=== PATIENT | male | born 1985 | race American Indian/Alaskan Native ===

== ENCOUNTER 2022-06-14 11:30 | Emergency (ER) | payer OTHER ==
[2022-06-14] MEDS ORDERED: Citric Acid/Simethicone/Sodium Bicarbonate Granules 4 GM Packet PO ONE (12:03)
== END 2022-06-14 12:45 | disposition home or self-care (01) ==
LOC: DL.ED 11:30
DX: K92.9 Disease of digestive system, unspecified (principal)
CPT/HCPCS: 99284

== ENCOUNTER 2023-08-08 05:57 | Day surgery (SDC) | payer MEDICAID ==
[2023-08-08] MEDS ORDERED: Dextrose 5%-0.45% NaCl 1,000 ML IV SCH (06:00)
[2023-08-08] MEDS ORDERED: fentaNYL 100 MCG/2 ML SDV ONE (06:20)
[2023-08-08] MEDS ORDERED: Midazolam 1 MG/ML 2 ML SDV ONE (06:20)
[2023-08-08] MEDS ORDERED: fentaNYL 100 MCG/2 ML SDV IV ONE ×2 (06:52→06:53)
[2023-08-08] MEDS ORDERED: Midazolam 1 MG/ML 2 ML SDV IV ONE ×2 (06:53→06:54)
== END 2023-08-08 08:46 | disposition home or self-care (01) ==
LOC: DL.ENDO 05:57
PROVIDERS: ATTEND Internal Medicine Gastroenterology
DX: R13.10 Dysphagia, unspecified (principal); K22.2 Esophageal obstruction; R63.4 Abnormal weight loss; K21.9 Gastro-esophageal reflux disease without esophagitis; Z53.09 Procedure and treatment not carried out because of other contraindication
CPT/HCPCS: J2250; J3010; J7042

== ENCOUNTER 2023-08-21 07:31 | Day surgery (SDC) | payer MEDICAID ==
[~2023-08-21 07:31] MED LIST: Dextrose 5%-0.45% NaCl 1,000 ML IV SCH
[2023-08-21] MEDS ORDERED: Propofol 200 MG/20 ML SDV ONE (07:59)
== END 2023-08-21 10:10 | disposition home or self-care (01) ==
LOC: DL.ENDO 07:31
PROVIDERS: ATTEND Internal Medicine Gastroenterology
DX: K29.50 Unspecified chronic gastritis without bleeding (principal); B96.81 Helicobacter pylori [H. pylori] as the cause of diseases classified elsewhere; R13.10 Dysphagia, unspecified
CPT/HCPCS: 00731; 87077; J7042

== ENCOUNTER 2023-08-26 18:09 | Emergency (ER) | payer MEDICAID ==
[2023-08-26] MEDS ORDERED: Iopamidol 612 MG/ML 100 ML Bottle IVPUSH ONE (18:43)
[2023-08-26] MEDS ORDERED: Sodium Chloride 0.9% 10 ML Syringe FLUSH PRN (18:43)
[2023-08-26] MEDS ORDERED: Citric Acid/Simethicone/Sodium Bicarbonate Granules 4 GM Packet PO ONE (19:51)
== END 2023-08-26 20:28 | disposition home or self-care (01) ==
LOC: DL.ED 18:09
DX: R13.10 Dysphagia, unspecified (principal)
CPT/HCPCS: 70491; 99282; 99284; A9270-GY; J3490; Q9967